=== PATIENT | female | born 1965 | race Caucasian/White ===

== ENCOUNTER 2017-08-24 23:57 | Emergency (ER) | payer OTHER ==
[2017-08-25 00:05] VITALS: BP 133/69; PULSE 78; RESP 18; TEMP 98.2; O2SAT 99
[2017-08-25] MEDS ORDERED: LORazepam 0.5 MG TAB PO ONE (01:15)
--- NOTE | 2017-08-25 01:42 | PD ---
HPI Chief Complaint: Dizziness Time Seen by Provider: 00:28 Travel History International Travel<30 days: No Contact w/Intl Traveler<30days: No Traveled to known affect area: No History of Present Illness HPI Patient is a 52-year-old female coming in saying she took a [id number] homeopathic anxiety sleep aid and then woke up feeling BiPAP hand leg tingling neck tingling bilateral lower feet tingling bilateral. She comes in saying that she is feeling stressed has been issues her and has been diagnosed with breast cancer all the stresses adding up on her she denies chest pain denies abdomen pain no diarrhea she has mild shortness of breath but there is no signs of tachypnea while she is in the ER she did not take anything to alleviate the symptoms after she woke up from having taken his [id number] homeopathic sleep. Denies any past medical history symptoms are still ongoing in the ER tingling bilateral neck and feet and distal toes bilateral PFSH Past Medical History Medical History: Denies Significant Hx Diminished Hearing: No Immunizations Current: Yes ?: Not Past Surgical History Surgical History: No Previous Surgery Social History Alcohol Use: Yes Tobacco Use: No Substance Use: No Allergies-Medications (Allergen,Severity, Reaction): Coded Allergies: No Known Allergies (Unverified , 08/25/17) Reported Meds & Prescriptions Reported Meds & Active Scripts Active Ativan (Lorazepam) 0.5 Mg Tab 0.5 Mg PO Q6H PRN Review of Systems Except as stated in HPI: all other systems reviewed are Neg Physical Exam Narrative GENERAL: Appears slightly anxious SKIN: Warm and dry. HEAD: Atraumatic. Normocephalic. EYES: Pupils equal and round. No scleral icterus. No injection or drainage. ENT: No nasal bleeding or discharge. Mucous membranes pink and moist. NECK: Trachea midline. No JVD. CARDIOVASCULAR: Regular rate and rhythm. RESPIRATORY: No accessory muscle use. Clear to auscultation. Breath sounds equal bilaterally. GASTROINTESTINAL: Abdomen soft, non-tender, nondistended. Hepatic and splenic margins not palpable. MUSCULOSKELETAL: Extremities without clubbing, cyanosis, or edema. No obvious deformities. NEUROLOGICAL: Awake and alert. No obvious cranial nerve deficits. Motor grossly within normal limits. Five out of 5 muscle strength in the arms and legs. Normal speech. PSYCHIATRIC: Appropriate mood and affect; insight and judgment normal. Data Data Last Documented VS Vital Signs Date Time Temp Pulse Resp B/P (MAP) Pulse Ox O2 Delivery O2 Flow Rate FiO2 08/25/17 00:05 98.2 78 18 133/69 (90) 99 Orders Orders Lorazepam (Ativan) (08/25/17 01:15) Electrocardiogram (08/25/17 ) Ed Discharge Order (08/25/17 02:41) MDM Medical Decision Making Medical Screen Exam Complete: Yes Emergency Medical Condition: Yes Medical Record Reviewed: Yes Differential Diagnosis Patient could be having a reaction to the medication she took versus a panic attack versus general anxiety disorder versus muscle spasm muscle tension Narrative Course Patient is given Ativan 0.5 mg an EKG which is normal sinus rhythm and a she feels completely better EKG copy is given to her and a prescription for 0.5 mg Ativan 10 pills Diagnosis Primary Impression: Stress Additional Impression: Paresthesias Patient Instructions: General Instructions, Stress (ED) Scripts Lorazepam (Ativan) 0.5 Mg Tab 0.5 MG PO Q6H Y for ANXIETY AND/OR AGITATION, #15 TAB 0 Refills Prov: Teddy Tipton MD 08/25/17 Disposition: 01 DISCHARGE HOME Condition: Good Teddy Tipton MD Aug 25, 2017 01:42
[2017-08-25] MEDS ORDERED: LORA-392 PO (02:38)
--- NOTE | 2017-08-25 20:32 | EKG ---
Date Performed: 08/25/2017 Time Performed: 01:27:21 PTAGE: 52 years EKG: Sinus rhythm NORMAL ECG NO PREVIOUS TRACING DOCTOR: Pamela Villar Interpretating Date/Time 08/25/2017 20:30:43
== END 2017-08-25 02:58 | disposition home or self-care (01) ==
LOC: NEPE 23:57
DX: Z73.3 Stress, not elsewhere classified (principal)
CPT/HCPCS: 93005; 99283